=== PATIENT | female | born 1955 | race Caucasian/White ===

== ENCOUNTER 2018-11-24 07:01 | Day surgery (SDC) | payer BC ==
[2018-11-22 12:58] VITALS: BMI 20.9
[~2018-11-24 07:01] MED LIST: LACTATED RINGERS 1,000 ML IV SCH; LIDOCAINE 1% 20 ML VIAL (10MG/ML) FOR IV START INTRADERMA PRN
[2018-11-24 07:19] VITALS: TEMP 97.3
[2018-11-24] MEDS ORDERED: GLYCOPYRROLATE 0.2 MG/ML 2 ML VIAL ONE (07:50)
[2018-11-24] MEDS ORDERED: PROPOFOL 10 MG/ML 20 ML VIAL IV ONE (07:50)
--- NOTE | 2018-11-24 07:55 | P.GSHP ---
History of Present Illness H&P Date: 11/24/18 Chief Complaint: Screening colonoscopy This is a 63-year-old female who presents today for screening colonoscopy. Patient denies any significant GI complaints. Her last colonoscopy was over 10 years ago. Past Medical History Past Medical History: No Reported History History of Any Multi-Drug Resistant Organisms: None Reported Additional Past Surgical History / Comment(s): colonoscopy Past Anesthesia/Blood Transfusion Reactions: Postoperative Nausea & Vomiting (PONV) Smoking Status: Never smoker Medications and Allergies Home Medications Medication Instructions Recorded Confirmed Type Escitalopram [Lexapro] 5 mg PO DAILY 11/22/18 11/24/18 History Allergies Allergy/AdvReac Type Severity Reaction Status Date / Time sodium benzoate AdvReac "foggy", Verified 11/22/18 12:54 resp. issues sulfite AdvReac "foggy", Verified 11/22/18 12:54 resp. issues Surgical - Exam Vital Signs Temp Pulse Resp BP Pulse Ox 97.3 F L 64 14 120/58 94 L 11/24/18 07:18 11/24/18 07:18 11/24/18 07:18 11/24/18 07:18 11/24/18 07:18 - General well developed, well nourished, no distress - Eyes PERRL - ENT normal pinna - Neck no masses - Respiratory normal expansion - Cardiovascular Rhythm: regular - Abdomen Abdomen: soft, non tender Assessment and Plan Assessment: We'll perform screening colonoscopy.
[2018-11-24 08:15] VITALS: PULSE 72; RESP 16
[2018-11-24 08:37] VITALS: BP 112/86
--- NOTE | 2018-11-24 09:27 | P.OP ---
Date of Procedure: 11/24/18 Preoperative Diagnosis: Screening Colonoscopy Postoperative Diagnosis: Mild diverticular changes Procedure(s) Performed: Colonoscopy Anesthesia: MAC Surgeon: Jonah Hernandez Pathology: none sent Condition: stable Disposition: PACU Description of Procedure: PROCEDURE: The patient was placed on the endoscopy table in the lateral position. Digital rectal examination was performed which revealed no abnormalities. s. Flexible colonoscope was then placed in the patient's anus and passed throughout the entire colon. The ileocecal valve was visualized. The cecum, ascending, transverse, descending colon were normal. The sigmoid colon a few scattered diverticula The rectum was normal as well. There were no masses, polyps or diverticula noted in the entire colon.
--- NOTE | 2018-11-30 18:59 | CDI ---
Date: 11/30/18 CDS/Stone Splitter Name: Siobhan Barbour Phone: If any questions, call Shilpi Bloom Clinical Laboratory Manager at [phone] Patient Name: Shelbie Felix Admit Date: 11/24/18 Discharge Date: 11/24/18 ATTENTION: The [facility] Coding Staff appreciate your assistance in clarifying documentation. Please respond to the clarification below the line at the bottom and electronically sign. The [facility] Coding Staff will review and follow-up if needed. Please note: Queries are made a part of the Legal Health Record. If you have any questions, please contact the Coding Manger. Dear Dr. Hernandez, Please provide clarification as to whether there were actually diverticula in the colon. On the operative report on sentence states that there were scattered diverticula in the sigmoid colon and then a few sentences down NO mass, polyps, or diverticula were noted in the entire colon is documented. Please clarify. Thank you for your kind consideration, Operative note addendum made MTDD
== END 2018-11-24 09:02 | disposition home or self-care (01) ==
LOC: ORWHC2ENDO 07:01
PROVIDERS: ATTEND Surgery
DX: Z12.11 Encounter for screening for malignant neoplasm of colon (principal); K57.30 Diverticulosis of large intestine without perforation or abscess without bleeding; Z79.899 Other long term (current) drug therapy; Z88.8 Allergy status to other drugs, medicaments and biological substances; Z91.048 Other nonmedicinal substance allergy status
CPT/HCPCS: J2704; G0121; 45378